=== PATIENT | female | born 1960 | race Caucasian/White ===

== ENCOUNTER → 2020-08-25 | Outpatient (CLI) | payer MEDICARE, OTHER ==
[2020-08-25 14:57] VITALS: BP 140/88; PULSE 57; RESP 16; TEMP 98.1; BMI 40.3
--- NOTE | 2020-08-25 16:15 | P.BASOAP ---
Subjective Progress Note Date: 08/25/20 Principal diagnosis: Morbid obesity Patient returns today for recheck. Underwent lap band she believes in 2006. We have no prior records to refer to. She is not sure if there is fluid in her band or not. She says she has episodes of dysphagia 1 time per month. No GERD symptoms. Weight was 270 prior to lap band placement she believes. Currently at 265. Lowest weight 216. Patient considering band removal with or without conversion to other procedures. Objective - Vital Signs Vital signs: Vital Signs Temp 98.1 F 08/25/20 14:49 Pulse 57 L 08/25/20 14:49 Resp 16 08/25/20 14:49 BP 140/88 08/25/20 14:49 Pulse Ox Intake & Output 08/24/20 08/25/20 08/25/20 18:59 06:59 18:59 Weight 120.202 kg - Exam Abdomen: Soft, nontender, nondistended Assessment/Plan (1) Morbid obesity Narrative/Plan: Options reviewed with the patient. We decided to attempt access of the port to see how much fluid was present and we were debating adding a small volume of fluid. When the port was accessed sterilely using our Rene needle there was no fluid present. As I injected saline and there was no resistance met and no fluid could be aspirated. Suspect leaking port/tubing. This was discussed in detail with the patient. Options of observation, further evaluation of leak with subsequent repair, conversion to alternative bariatric procedure, or simply band removal reviewed. Patient will consider these options and notify me of her decision. Her daughter is having sleeve gastrectomy later this year. Plan: Date: 08/25/20 Initial Weight: 122.47 kg Initial BMI: 41.0 Current Weight: 120.202 kg Current BMI: 40.3 Type of Surgery: Total Volume in Band: 0 Previous Volume: 0 Volume Removed: Volume Added: 0 Band Size:
== END | disposition home or self-care (01) ==
LOC: BARWHC3 13:24
PROVIDERS: ATTEND Surgery
DX: E66.01 Morbid (severe) obesity due to excess calories (principal); Z68.41 Body mass index [BMI] 40.0-44.9, adult
CPT/HCPCS: 99212

== ENCOUNTER → 2021-04-28 | Outpatient (CLI) | payer MEDICARE, OTHER ==
[2021-04-28 16:56] VITALS: BP 138/86; PULSE 69; RESP 18; TEMP 98.1; BMI 39.8
--- NOTE | 2021-04-28 17:32 | P.HPBAR ---
Bariatric H&P - History & Physicial H&P Date: 04/28/21 History & Physicial: Visit/CC: initial visit Patient initial contact: Initial weight: 122.47 kg Initial weight in pounds: 270.00 Height: 5 ft 7.25 in Initial BMI: 42.0 Last weight: Current weight: 116.301 kg Current weight in pounds: 256.40 Current BMI: 39.8 [place] body weight (based on NIH guidelines): 61.802 kg Excess body weight loss: 10.1% The patient is a 60 year-old F who presents for Bariatric Assessment. DATE OF SERVICE: 04/28/2021 REASON FOR CONSULTATION: Initial bariatric evaluation. HISTORY OF PRESENT ILLNESS: Raul Lux is a 60-year-old female who comes with lifelong morbid obesity. She has the adjustable gastric band placed in 2005 over 15 years ago. She had no problems with the band. Her highest weight was 270 pounds. Lowest weight was 200 pounds. She reports food getting stuck with her band and with intractable nausea and vomiting. She reports pain along her gastric port. She wants her band out. Prior to her band, she denies gastroesophageal reflux disease. She still has her gallbladder. Her daughter had her gallbladder out. Her daughter had the sleeve. She had a stress test in 2019. As a result of her morbid obesity, she has co-morbidities osteoarthritis of the back, left knee, and hypertensive heart disease. She presents to me first time in consultation for management of her morbid obesity. At height of 5 feet 7.25 inches, her ideal body weight is 153 pounds. Her highest weight was 270 pounds, body mass index 42.1. Lowest weight was 200 pounds. She comes in 256 pounds. Her body mass index is 39.9. She is 98 pounds overweight. Lifetime weight loss PAST MEDICAL HISTORY: 1. Morbid obesity due to excess calories 2. Body mass index of 38.0, initial 3. ADD with ADHD 4. Generalized anxiety disorder 5. Depressive disorder 6. Bipolar disorder 7. Osteoarthritis lower back 8. Osteoarthritis left knee 9. Gastroesophageal reflux disease 10. Hypertensive heart disease PAST SURGICAL HISTORY: 1. Lap band placement, 2005 2. Back surgery x 2 3. Left knee replacement 4. Tubal ligation HOME MEDICATIONS: Home Medications Medication Instructions Recorded Confirmed Dextroamphetamine/Amphetamine 20 mg PO BID 08/25/20 06/09/21 [Adderall] Metoprolol Succinate (ER) [Toprol 50 mg PO BID 08/25/20 06/09/21 XL] Celecoxib [CeleBREX] 200 mg PO DAILY 05/27/21 06/09/21 lamoTRIgine [LaMICtal] 150 mg PO BID 05/27/21 06/09/21 DULoxetine HCL [Cymbalta] 20 mg PO DAILY 06/09/21 06/09/21 ALLERGIES: Allergies Allergy/AdvReac Type Severity Reaction Status Date / Time latex Allergy Rash/Hives Verified 06/09/21 16:03 wool Allergy Rash/Hives Verified 06/09/21 16:03 SOCIAL HISTORY: Denies tobacco use. Smokes marijuana. FAMILY HISTORY: No family history of ulcerative colitis disease or Crohn's disease. Family history of morbid obesity. No lupus in the family. No reports of stomach or esophageal cancer. REVIEW OF ORGAN SYSTEMS: CONSTITUTIONAL: At height of 5 feet 7.25 inches, her ideal body weight is 153 pounds. Her highest weight was 270 pounds, body mass index 42.1. Lowest weight was 200 pounds. She comes in 256 pounds. Her body mass index is 39.9. She is 98 pounds overweight. Lifetime weight loss HEENT: Denies any active troubles with vision or hearing. Has troubles with swallowing. ENDOCRINE: Denies diabetes. No hypothyroidism. CARDIOVASCULAR: Denies reports of palpitations or heart attacks or chest pain. Has hypertensive heart disease. RESPIRATORY: Denies pneumonia. No recent dyspnea. GASTROINTESTINAL: Denies any bright red blood per rectum. No diarrhea. No constipation. GENITOURINARY: Denies bladder urgency. No recent blood in urine MUSCULOSKELETAL: Has lower back pain and joint pain. Has osteoarthritis of the knees. NEURO: No headaches. No seizure disorders. PSYCH: Has depression. No suicidal ideation. Has anxiety and bipolar disorder with ADD/ADHD. RHEUMATOLOGIC: No lupus. No rheumatoid arthritis. HEMATOLOGIC: Denies any abnormal bleeding or bruising. SKIN: No rash. No skin cancer. PHYSICAL EXAM: VITAL SIGNS: Height 5 foot 7.25 inches, weight 256 pounds. BMI 39.9 Vital Signs Temp 98.1 F 04/28/21 16:43 Pulse 69 04/28/21 16:43 Resp 18 04/28/21 16:43 BP 138/86 04/28/21 16:43 Pulse Ox GENERAL: Well-developed in no acute distress. HEENT: No scleral icterus. Extraocular movements grossly intact. Hears conversational speech. No nasal drainage. NECK: Supple without lymphadenopathy. CHEST: Nonlabored respirations with equal bilateral excursions. CARDIOVASCULAR: Regular rate and regular rhythm. Distal 2+ pulses. ABDOMEN: Obese, soft, nontender, nondistended. MUSCULOSKELETAL: No clubbing, cyanosis. NEURO: No focal or lateralizing signs. Cranial nerves 2 through 12 grossly within normal limits. PSYCH: Appropriate affect. Alert and oriented to person, place and time. SKIN: Good skin turgor. Well perfused. ASSESSMENT: 1. Morbid obesity due to excess calories 2. Body mass index of 38.0, initial 3. ADD with ADHD 4. Generalized anxiety disorder 5. Depressive disorder 6. Bipolar disorder 7. Osteoarthritis lower back 8. Osteoarthritis left knee 9. Gastroesophageal reflux disease 10. Hypertensive heart disease 11. Weight regain following bariatric procedure 12. Dysphagia. 13. Complications adjustable gastric band. PLAN: 1. Recommend evaluation for adjustable band removal due to complications. 2. Recommend bariatric metabolic panel to evaluate for micro- including macronutrient deficiencies. 3. Dietary surveillance and counseling was reviewed. Increased protein intake over 65 grams daily advised. 4. Recommend medical risk assessment. 5. Recommend upper endoscopy for dysphagia 6. Recommend 12-lead EKG. Thank you for this consultation. Past Medical History Past Medical History: GERD/Reflux, Hypertension Additional Past Medical History / Comment(s): arthritis. History of Any Multi-Drug Resistant Organisms: None Reported Past Surgical History: Bariatric Surgery, Orthopedic Surgery, Tubal Ligation Additional Past Surgical History / Comment(s): back surgery X 2. knee replacement left. lap band 2006. Past Anesthesia/Blood Transfusion Reactions: Postoperative Nausea & Vomiting (PONV) Past Psychological History: ADD/ADHD, Anxiety, Bipolar, Depression Smoking Status: Never smoker Past Alcohol Use History: Occasional Past Drug Use History: Marijuana Additional Drug Use History / Comment(s): smoke marijuana - couple times a week. Surgical - Exam Vital Signs Temp Pulse Resp BP 98.1 F 69 18 138/86 04/28/21 16:43 04/28/21 16:43 04/28/21 16:43 04/28/21 16:43 Bariatric Checklist Checklist: Plan: Checklist: EGD: 1. Hiatal hernia: 2. H. Pylori: HgbA1c: Vitamin D: Smoking: Primary care physician referral: Dr. Russell ([place]) Psychiatry clearance: Cardiology clearance: Sleep study: Diet journal: VTE risk score: VTE risk level: Rehab needs at discharge:
== END ==
LOC: BARWHC3 15:43
PROVIDERS: ATTEND Surgery Plastic and Reconstructive Surgery
DX: E66.01 Morbid (severe) obesity due to excess calories (principal); F90.9 Attention-deficit hyperactivity disorder, unspecified type; F41.1 Generalized anxiety disorder; F31.9 Bipolar disorder, unspecified; M47.9 Spondylosis, unspecified; M17.12 Unilateral primary osteoarthritis, left knee; K21.9 Gastro-esophageal reflux disease without esophagitis; I11.9 Hypertensive heart disease without heart failure; K95.09 Other complications of gastric band procedure; Z68.39 Body mass index [BMI] 39.0-39.9, adult; Z91.040 Latex allergy status; Z91.048 Other nonmedicinal substance allergy status
CPT/HCPCS: 99203

== ENCOUNTER → 2021-05-20 | Outpatient (CLI) | payer MEDICARE, OTHER ==
[2021-05-20 12:15] LABS: HCT 38.2 % (34.0-46.0); MCH 30.1 pg (25.0-35.0); MCHC 33.9 g/dL (31.0-37.0); MCV 88.5 fL (80.0-100.0); Mean Platelet Volume 6.7; Platelet Count 244 k/uL (150-450); RBC 4.32 m/uL (3.80-5.40); RDW 13.8 % (11.5-15.5); WBC 6.4 k/uL (3.8-10.6)
[2021-05-20 12:28] LABS: ALT 17 U/L (4-34); AST 24 U/L (14-36); African American GFR (CKD) >90 (>60 ml/min/1.73 sqM); Albumin 4.4 g/dL (3.5-5.0); Alkaline Phosphatase 80 U/L (38-126); Anion Gap 7 mmol/L; Blood Urea Nitrogen 17 mg/dL (7-17); Calcium 9.6 mg/dL (8.4-10.2); Carbon Dioxide 27 mmol/L (22-30); Chloride 106 mmol/L (98-107); Glucose 95 mg/dL (74-99); Non-African American GFR(CKD) >90 (>60 ml/min/1.73 sqM); Phosphorus 3.7 mg/dL (2.5-4.5); Potassium 4.3 mmol/L (3.5-5.1); Sodium 140 mmol/L (137-145); Total Bilirubin 0.4 mg/dL (0.2-1.3); Total Protein 7.1 g/dL (6.3-8.2)
[2021-05-20 12:33] LABS: INR 0.9 (<1.2); Partial Thromboplastin Time 23.4 sec (22.0-30.0); Prothrombin Time 10.2 sec (9.0-12.0)
[2021-05-20 20:38] LABS: Hemoglobin A1C 5.3 % (4.0-6.0)
[2021-05-20 21:24] LABS: % Iron Saturation 13.79 (12.00-45.00); Chol/HDL Ratio 5.65; Cholesterol 226 mg/dL (0-200); Iron 44 ug/dL (50-170); LDL Cholesterol,Calculated 149.4 mg/dL (0.0-131.0); Total Iron Binding Capacity 319 ug/dL (228-460)
[2021-05-20 21:33] LABS: Ferritin 82.3 ng/mL (10.0-291.0)
[2021-05-20 21:58] LABS: Folate, Serum 20.4 ng/mL
[2021-05-21 14:07] LABS: Zinc, Serum 80 ug/dL (60-130)
== END | disposition home or self-care (01) ==
LOC: LABPAT 11:07
PROVIDERS: ATTEND Surgery Plastic and Reconstructive Surgery
DX: N19 Unspecified kidney failure (principal); E66.01 Morbid (severe) obesity due to excess calories; E89.1 Postprocedural hypoinsulinemia; E55.9 Vitamin D deficiency, unspecified; D50.8 Other iron deficiency anemias; K90.89 Other intestinal malabsorption; K74.1 Hepatic sclerosis; K50.90 Crohn's disease, unspecified, without complications
CPT/HCPCS: 36415; 80053; 80061; 82306; 82525; 82607; 82728; 82746; 83036; 83540; 83550; 83735; 83970; 84100; 84134; 84255; 84425; 84443; 84590; 84630; 85027; 85610; 85730; 93005

== ENCOUNTER 2021-05-31 08:29 | Day surgery (SDC) | payer MEDICARE, OTHER ==
[2021-05-27 14:54] VITALS: BMI 40.7
--- NOTE | 2021-05-31 07:39 | P.GSHP ---
History of Present Illness H&P Date: 05/31/21 CHIEF COMPLAINT: GERD HISTORY OF PRESENT ILLNESS: The patient is a 60-year-old female who presents reports gastroesophageal reflux disease. Upper endoscopy was offered for further evaluation and management. PAST MEDICAL HISTORY: Please see list. PAST SURGICAL HISTORY: Please see list. MEDICATIONS: Please see list. ALLERGIES: Please see list. SOCIAL HISTORY: No illicit drug use FAMILY HISTORY: No reports of Crohn disease or ulcerative colitis. REVIEW OF ORGAN SYSTEMS: CONSTITUTIONAL: No reports of fevers or chills. GI: Denies any blood in stools or constipation. PHYSICAL EXAM: VITAL SIGNS: Stable GENERAL: Well-developed and pleasant in no acute distress. HEENT: No scleral icterus. Extraocular movements grossly intact. Moist buccal mucosa. NECK: Supple without lymphadenopathy. CHEST: Unlabored respirations. Equal bilateral excursions. CARDIOVASCULAR: Regular rate and rhythm. Distal 2+ pulses. ABDOMEN: Soft, nondistended. MUSCULOSKELETAL: No clubbing, cyanosis, or edema. ASSESSMENT: 1. Gastroesophageal reflux disease PLAN: 1. Recommend proceeding with an upper endoscopy Past Medical History Past Medical History: Cancer, Hyperlipidemia, Hypertension, Rheumatoid Arthritis (RA) Additional Past Medical History / Comment(s): skin cancer History of Any Multi-Drug Resistant Organisms: None Reported Past Surgical History: Back Surgery, Bariatric Surgery, Joint Replacement, Tubal Ligation Additional Past Surgical History / Comment(s): back surgery X 2. left knee replacement. lap band 2005. Past Anesthesia/Blood Transfusion Reactions: Postoperative Nausea & Vomiting (PONV) Smoking Status: Never smoker - Past Family History Mother Family Medical History: Deep Vein Thrombosis (DVT) Father Family Medical History: Deep Vein Thrombosis (DVT) Medications and Allergies Home Medications Medication Instructions Recorded Confirmed Type Dextroamphetamine/Amphetamine 20 mg PO BID 08/25/20 05/27/21 History [Adderall] Metoprolol Succinate (ER) [Toprol 50 mg PO BID 08/25/20 05/27/21 History Xl] Celecoxib [CeleBREX] 200 mg PO DAILY 05/27/21 05/27/21 History lamoTRIgine [LaMICtal] 150 mg PO BID 05/27/21 05/27/21 History Allergies Allergy/AdvReac Type Severity Reaction Status Date / Time latex Allergy Rash/Hives Verified 05/27/21 14:41 wool Allergy Rash/Hives Verified 05/27/21 14:41
[~2021-05-31 08:29] MED LIST: LACTATED RINGERS 1,000 ML IV SCH
[2021-05-31 08:59] VITALS: TEMP 97.1
[2021-05-31] MEDS ORDERED: ONDANSETRON 4 MG/2 ML VIAL ONE (09:00)
[2021-05-31] MEDS ORDERED: ONDANSETRON 4 MG/2 ML VIAL IVP ONE (09:00)
[2021-05-31] MEDS ORDERED: LIDOCAINE 1% INJ 10MG/ML (20 ML MDV) ONE (09:10)
[2021-05-31] MEDS ORDERED: GLYCOPYRROLATE 0.2 MG/ML 2 ML VIAL ONE (09:10)
[2021-05-31] MEDS ORDERED: PROPOFOL 10 MG/ML 20 ML VIAL IV ONE (09:10)
--- NOTE | 2021-05-31 09:35 | P.PCN ---
Date of Procedure: 05/31/21 Description of Procedure: PREOPERATIVE DIAGNOSIS: Gastroesophageal reflux disease. Morbid obesity. POSTOPERATIVE DIAGNOSIS: Morbid obesity. Gastritis. Gastroesophageal reflux disease. Diaphragmatic hiatal hernia OPERATION: Esophagogastroduodenoscopy with biopsies along antrum. SURGEON: Sophia Ugarte MD ANESTHESIA: MAC. INDICATIONS: The patient is a 60-year-old female who presents with a history of reflux disease. Benefits and risks of the procedure were described. Informed consent was obtained. DESCRIPTION: The patient was brought into the endoscopy suite and laid in the left lateral decubitus position. An Olympus gastroscope was passed along the posterior oropharynx down to the distal esophagus where the squamocolumnar junction was encountered at 38 cm from the incisors. The stomach was entered and no bile reflux was found. Additional findings are listed below. Biopsies with cold f orceps were obtained of the antrum. The first through third portion of the duodenum was examined and unremarkable. Retroflexion of the scope confirmed Hill grade 2 lower esophageal valve. The squamocolumnar junction demonstrated LA grade B erosive esophagitis. The stomach was desufflated. The patient tolerated the procedure well. FINDINGS: Squamocolumnar junction 38 cm from the incisors. Diaphragmatic hiatus at 40 cm. Hiatal hernia, 2 cm Hill grade 2 lower esophageal valve. LA grade B erosive esophagitis. No active duodenitis. Chronic gastritis with recent bleed No erosion from previous gastric band RECOMMENDATIONS: Upper endoscopy as needed. Plan - Discharge Summary New Discharge Prescriptions: Continue Metoprolol Succinate (ER) [Toprol XL] 50 mg PO BID Dextroamphetamine/Amphetamine [Adderall] 20 mg PO BID lamoTRIgine [LaMICtal] 150 mg PO BID Celecoxib [CeleBREX] 200 mg PO DAILY Discharge Medication List Dextroamphetamine/Amphetamine [Adderall] 20 mg PO BID 08/25/20 [History] Metoprolol Succinate (ER) [Toprol XL] 50 mg PO BID 08/25/20 [History] Celecoxib [CeleBREX] 200 mg PO DAILY 05/27/21 [History] lamoTRIgine [LaMICtal] 150 mg PO BID 05/27/21 [History] [facility]ment[facility] [place] [facility] [place] [facility] Patient Instructions/Handouts: *Surgery [facility] - (Anesthesia) Endoscopy Discharge Instructions, Gastritis (GEN), Diet for Stomach Ulcers and Gastritis (ED) Discharge Disposition: HOME SELF-CARE
[2021-05-31 09:40] VITALS: BP 132/84; PULSE 70; RESP 14
== END 2021-05-31 10:10 | disposition home or self-care (01) ==
LOC: ORWHC2ENDO 08:29
PROVIDERS: ATTEND Surgery Plastic and Reconstructive Surgery
DX: K29.50 Unspecified chronic gastritis without bleeding (principal); K21.9 Gastro-esophageal reflux disease without esophagitis; K44.9 Diaphragmatic hernia without obstruction or gangrene; E78.5 Hyperlipidemia, unspecified; I10 Essential (primary) hypertension; M06.9 Rheumatoid arthritis, unspecified; M19.90 Unspecified osteoarthritis, unspecified site; F41.9 Anxiety disorder, unspecified; F31.9 Bipolar disorder, unspecified; E66.01 Morbid (severe) obesity due to excess calories; Z68.41 Body mass index [BMI] 40.0-44.9, adult; Z98.84 Bariatric surgery status; Z96.652 Presence of left artificial knee joint; Z98.51 Tubal ligation status; Z82.49 Family history of ischemic heart disease and other diseases of the circulatory system; Z79.899 Other long term (current) drug therapy; Z91.040 Latex allergy status; Z91.09 Other allergy status, other than to drugs and biological substances
CPT/HCPCS: 88305; 43239; J2405; J2001; J2704

== ENCOUNTER → 2021-07-17 | Outpatient (CLI) | payer MEDICARE, OTHER ==
--- NOTE | 2021-07-19 07:54 | US ---
EXAMINATION TYPE: US gallbladder DATE OF EXAM: 07/17/2021 COMPARISON: NONE CLINICAL HISTORY: R10.11 Abdominal pain right upper quadrant. EXAM MEASUREMENTS: Liver Length: 14.1 cm Gallbladder Wall: 0.3 cm CBD: 0.5 cm Right Kidney: 12.2 x 6.3 x 5.1 cm Pancreas: visualized portions wnl Liver: bilobed cyst measures 1.8 x 1.8 x 2.1 cm Gallbladder: No stones seen Evidence for sonographic Odonnell's sign: Yes CBD: wnl Right Kidney: No hydronephrosis or masses seen IMPRESSION: Bilobed hepatic cyst.
== END | disposition home or self-care (01) ==
LOC: RADUSWWP 08:57
PROVIDERS: ATTEND Surgery Plastic and Reconstructive Surgery
DX: K76.89 Other specified diseases of liver (principal)
CPT/HCPCS: 76705

== ENCOUNTER → 2021-08-30 | Outpatient (CLI) | payer MEDICARE, OTHER ==
[2021-08-30 11:18] VITALS: BMI 42.0
== END ==
LOC: BARWHC3 08:35
PROVIDERS: ATTEND Surgery Plastic and Reconstructive Surgery
DX: E66.01 Morbid (severe) obesity due to excess calories (principal); Z71.3 Dietary counseling and surveillance; Z91.040 Latex allergy status; Z91.09 Other allergy status, other than to drugs and biological substances; Z68.41 Body mass index [BMI] 40.0-44.9, adult
CPT/HCPCS: 97804

== ENCOUNTER 2021-09-13 08:09 | Day surgery (SDC) | payer MEDICARE, OTHER ==
[2021-09-09 14:07] VITALS: BMI 42.0
--- NOTE | 2021-09-13 07:45 | P.GSHP ---
History of Present Illness H&P Date: 09/13/21 CHIEF COMPLAINT: Complications from adjustable gastric band HISTORY OF PRESENT ILLNESS: Raul Lux is a 60-year-old female who comes with lifelong morbid obesity. She has the adjustable gastric band placed in 2005 over 15 years ago. She had no problems with the band. Her highest weight was 270 pounds. Lowest weight was 200 pounds. She reports food getting stuck with her band and with intractable nausea and vomiting. She reports pain along her gastric port. As a result of her morbid obesity, she has co-morbidities osteoarthritis of the back, left knee, and hypertensive heart disease. She presents with complications of adjustable gastric band At height of 5 feet 7.25 inches, her ideal body weight is 153 pounds. Her highest weight was 270 pounds, body mass index 42.1. Lowest weight was 200 pounds. She comes in 256 pounds. Her body mass index is 39.9. She is 98 pounds overweight. Lifetime weight loss PAST MEDICAL HISTORY: 1. Morbid obesity due to excess calories 2. Body mass index of 38.0, initial 3. ADD with ADHD 4. Generalized anxiety disorder 5. Depressive disorder 6. Bipolar disorder 7. Osteoarthritis lower back 8. Osteoarthritis left knee 9. Gastroesophageal reflux disease 10. Hypertensive heart disease PAST SURGICAL HISTORY: 1. Lap band placement, 2005 2. Back surgery x 2 3. Left knee replacement 4. Tubal ligation HOME MEDICATIONS: Home Medications Medication Instructions Recorded Confirmed Dextroamphetamine/Amphetamine 20 mg PO BID 08/25/20 06/09/21 [Adderall] Metoprolol Succinate (ER) [Toprol 50 mg PO BID 08/25/20 06/09/21 XL] Celecoxib [CeleBREX] 200 mg PO DAILY 05/27/21 06/09/21 lamoTRIgine [LaMICtal] 150 mg PO BID 05/27/21 06/09/21 DULoxetine HCL [Cymbalta] 20 mg PO DAILY 06/09/21 06/09/21 ALLERGIES: Allergies Allergy/AdvReac Type Severity Reaction Status Date / Time latex Allergy Rash/Hives Verified 06/09/21 16:03 wool Allergy Rash/Hives Verified 06/09/21 16:03 SOCIAL HISTORY: Denies tobacco use. Smokes marijuana. FAMILY HISTORY: No family history of ulcerative colitis disease or Crohn's disease. Family history of morbid obesity. No lupus in the family. No reports of stomach or esophageal cancer. REVIEW OF ORGAN SYSTEMS: CONSTITUTIONAL: At height of 5 feet 7.25 inches, her ideal body weight is 153 pounds. Her highest weight was 270 pounds, body mass index 42.1. Lowest weight was 200 pounds. She comes in 256 pounds. Her body mass index is 39.9. She is 98 pounds overweight. Lifetime weight loss HEENT: Denies any active troubles with vision or hearing. Has troubles with swallowing. ENDOCRINE: Denies diabetes. No hypothyroidism. CARDIOVASCULAR: Denies reports of palpitations or heart attacks or chest pain. Has hypertensive heart disease. RESPIRATORY: Denies pneumonia. No recent dyspnea. GASTROINTESTINAL: Denies any bright red blood per rectum. No diarrhea. No constipation. GENITOURINARY: Denies bladder urgency. No recent blood in urine MUSCULOSKELETAL: Has lower back pain and joint pain. Has osteoarthritis of the knees. NEURO: No headaches. No seizure disorders. PSYCH: Has depression. No suicidal ideation. Has anxiety and bipolar disorder with ADD/ADHD. RHEUMATOLOGIC: No lupus. No rheumatoid arthritis. HEMATOLOGIC: Denies any abnormal bleeding or bruising. SKIN: No rash. No skin cancer. PHYSICAL EXAM: VITAL SIGNS: Height 5 foot 7.25 inches, weight 256 pounds. BMI 39.9 GENERAL: Well-developed in no acute distress. HEENT: No scleral icterus. Extraocular movements grossly intact. Hears conversational speech. No nasal drainage. NECK: Supple without lymphadenopathy. CHEST: Nonlabored respirations with equal bilateral excursions. CARDIOVASCULAR: Regular rate and regular rhythm. Distal 2+ pulses. ABDOMEN: Obese, soft, nontender, nondistended. MUSCULOSKELETAL: No clubbing, cyanosis. NEURO: No focal or lateralizing signs. Cranial nerves 2 through 12 grossly within normal limits. PSYCH: Appropriate affect. Alert and oriented to person, place and time. SKIN: Good skin turgor. Well perfused. ASSESSMENT: 1. Morbid obesity due to excess calories 2. Body mass index of 38.0, initial 3. ADD with ADHD 4. Generalized anxiety disorder 5. Depressive disorder 6. Bipolar disorder 7. Osteoarthritis lower back 8. Osteoarthritis left knee 9. Gastroesophageal reflux disease 10. Hypertensive heart disease 11. Weight regain following bariatric procedure 12. Dysphagia. 13. Complications adjustable gastric band. PLAN: 1. Recommend removal of adjustable gastric band due to complications Past Medical History Past Medical History: Cancer, GERD/Reflux, Hypertension Additional Past Medical History / Comment(s): arthritis,cancerous mole removed History of Any Multi-Drug Resistant Organisms: None Reported Past Surgical History: Bariatric Surgery, Orthopedic Surgery, Tubal Ligation Additional Past Surgical History / Comment(s): back surgery X 2. knee replacement left. lap band 2005. Past Anesthesia/Blood Transfusion Reactions: Postoperative Nausea & Vomiting (PONV) Smoking Status: Never smoker - Past Family History Mother Family Medical History: No Reported History Medications and Allergies Home Medications Medication Instructions Recorded Confirmed Type Dextroamphetamine/Amphetamine 20 mg PO BID 08/25/20 09/09/21 History [Adderall] Metoprolol Succinate (ER) [Toprol 50 mg PO BID 08/25/20 09/09/21 History XL] Celecoxib [CeleBREX] 200 mg PO DAILY 05/27/21 09/09/21 History lamoTRIgine [LaMICtal] 150 mg PO BID 05/27/21 09/09/21 History DULoxetine HCL [Cymbalta] 20 mg PO QAM 06/09/21 09/09/21 History Allergies Allergy/AdvReac Type Severity Reaction Status Date / Time latex Allergy skin Verified 09/09/21 14:00 redness wool Allergy Rash/Hives Verified 09/09/21 14:00
[~2021-09-13 08:09] MED LIST changes: +ACETAMINOPHEN TAB 500 MG TAB PO STA; +CHLORHEXIDINE GLUCONATE 15 ML CUP MUCOUS MEM PRN; +DEXAMETHASONE SOD PHOSPHATE 4 MG/ML 1 ML VIAL IV ONE; +ENOXAPARIN 40 MG/0.4 ML SYRINGE SQ PRN; +GABAPENTIN 300 MG CAP PO STA; -LACTATED RINGERS 1,000 ML IV SCH; +MIDAZOLAM 2 MG/2 ML VIAL IV PRN; +ONDANSETRON 4 MG/2 ML VIAL IVP ONE; +PANTOPRAZOLE 40 MG/10 ML VIAL IVP PRN; +SCOPOLAMINE 1.5MG/72HR PATCH TRANSDERM ONE
[2021-09-13] MEDS: LACTATED RINGERS 1,000 ML IV SCH ×2 (08:42→09:04)
[2021-09-13] MEDS ORDERED: MELOXICAM 7.5 MG TAB PO SCH (09:00)
[2021-09-13] MEDS ORDERED: NEOSTIGMINE 1 MG/ML 10 ML VIAL ONE (09:01)
[2021-09-13] MEDS ORDERED: SUCCINYLCHOLINE CHLORIDE 100 MG/5 ML SYR IV ONE (09:01)
[2021-09-13] MEDS ORDERED: GLYCOPYRROLATE 0.2 MG/ML 2 ML VIAL ONE (09:01)
[2021-09-13] MEDS ORDERED: ROCURONIUM 10 MG/ML (5 ML VIAL) IV ONE (09:01)
[2021-09-13] MEDS ORDERED: PROPOFOL 10 MG/ML 20 ML VIAL IV ONE (09:01)
[2021-09-13] MEDS ORDERED: fentaNYL (PF) 50 MCG/ML 2 ML AMP ONE (09:01)
[2021-09-13] MEDS ORDERED: MIDAZOLAM 2 MG/2 ML VIAL ONE (09:01)
[2021-09-13] MEDS ORDERED: LIDOCAINE 1% INJ 10MG/ML (20 ML MDV) ONE (09:01)
[2021-09-13] MEDS: ceFAZolin 3 GM in SODIUM CHLORIDE 0.9% 100 ML IVPB PRN ×2 (09:06→09:10)
[2021-09-13] MEDS ORDERED: LIDOCAINE 1%-EPI 1:100,000 20 ML VIAL SQ ONE (09:32)
[2021-09-13 10:27] VITALS: TEMP 97.4
--- NOTE | 2021-09-13 10:31 | P.OP ---
Date of Procedure: 09/13/21 Description of Procedure: SURGEON: MARTY CRAMER MD PREOPERATIVE DIAGNOSES: 1. Morbid obesity due to excess calories 2. Body mass index of 42.0 3. ADD with ADHD 4. Generalized anxiety disorder 5. Depressive disorder 6. Bipolar disorder 7. Osteoarthritis lower back 8. Osteoarthritis left knee 9. Gastroesophageal reflux disease 10. Hypertensive heart disease 11. Weight regain following bariatric procedure 12. Dysphagia. 13. Complications adjustable gastric band. POSTOPERATIVE DIAGNOSES: 1. Morbid obesity due to excess calories 2. Body mass index of 42.0 3. ADD with ADHD 4. Generalized anxiety disorder 5. Depressive disorder 6. Bipolar disorder 7. Osteoarthritis lower back 8. Osteoarthritis left knee 9. Gastroesophageal reflux disease 10. Hypertensive heart disease 11. Weight regain following bariatric procedure 12. Dysphagia. 13. Complications adjustable gastric band. 14. Malfunction of adjustable gastric band tubing. OPERATION: 1. Robotic-assisted da Willem Xi laparoscopic removal of adjustable gastric band and all components. 2. Intraoperative upper endoscopy. ANESTHESIA: General with local anesthetic. ESTIMATED BLOOD LOSS: 5 mL SPECIMENS REMOVED: 1. Adjustable gastric band and components Condition: stable Disposition: same day COMPLICATIONS: None. Operative Findings: 1. Adjustable gastric band port found along the epigastrium removed in total 2. Old generation gastric band, with minimal inflammatory reaction 3. Anti-prolapse suture divided. 4 Gastroesophageal reflux disease, LA grade B found. 5. Fracture to the tubing along the fascia was confirmed for malfunction adjustable gastric band/tubing. INDICATIONS: The patient is a 60-year-old male who presents with complications of her adjustable gastric band. Surgical options were described including removal of the band. As she has persistent pain and discomfort from the band, removal of the adjustable gastric band and port including all components was proposed. Benefits and risks of the procedure were described. Informed consent was obtained. DESCRIPTION: The patient was brought into the operating room theater. She was placed supine. She had received Lovenox subcutaneously for DVT prophylaxis. Additionally she Peridex oral solution as an oral decontaminant was placed per anesthesia. After general induction, the abdomen was prepped and draped in standard sterile fashion. Ioban draping was placed along the abdomen. A robotic da Willem Xi system was prepped and primed. Prior to incision, a timeout protocol was performed and confirmed with the surgical team. Attention was now brought to the intra-abdominal component of the procedure the removal of the adjustable gastric band. Incisions were proposed at 13 cm from the xiphoid. Proposed port sites were marked with indelible marker along the anterior axillary line bilaterally, mid clavicular line bilaterally with each port marked 10 cm from each other. A 5 mm 0 degrees laparoscopic trocar entry was performed along the left upper quadrant. The abdomen was insufflated to 15 mmHg pressure, which she tolerated well. Diagnostic laparoscopy demonstrated no injury to bowel, viscera, or mesentery or moderate adhesions in the abdomen. An 8 mm camera port was placed left lateral to the umbilicus at the epigastrium, 13 cm distal to the xiphoid. Next, 8-mm port was placed along the right mid abdomen. The 5 mm port was exchanged for 12 mm trocar. Another 8-mm port was placed along the right upper quadrant. The port was palpated along the epigastrium. A transverse 3 cm incision was placed over the adjustable gastric band port site using #11 blade. The incision was deepened to the subcutaneous tissue using electrocautery Bovie cautery. The port was identified and circumferentially dissected free from the surrounding tissues. Once freed, the port was removed from the pocket and placed onto the skin and tubing was cut. Fracture to the tubing along the fascia was confirmed for malfunction adjustable gastric band/tubing. The robot was docked along the left lateral abdomen. The patient was repositioned in reverse Trendelenburg position, 21-degrees. A 30-degree camera was used. Using a Prograsp for arm 1, including scissors with cautery for arm 3, and grasper for arm 4, the robotic system was docked and primed as described. Instruments were interchanged by the executive personal assistant. I had sat at the console. The port was followed with its tubing to the gastric band. The gastrohepatic ligament was scarred from prior surgery. The cicatrix around the adjustable gastric band was carefully dissected free. The anti-prolapse stitch was divided. The band was then freed using hook cautery. Allergan adjustable gastric band was removed in total. Care was taken to avoid any gastrotomies. I then went to the head of the bed to perform intraoperative esophagogastroduodenoscopy to evaluate for gastritis and any full thickness injury to the stomach. An Olympus gastroscope was passed from the posterior oropharynx down to the esophagus, where the squamocolumnar junction was found LA grade B erosive esophagitis, chronic changes. The stomach was entered and bile was found and suctioned. Mild chronic gastritis was found along the antrum without gastric ulcers or duodenitis or duodenal ulcers. Retroflexion of the scope confirmed a Hill grade 2 lower esophageal valve. No full-thickness erosion from the prior band was encountered. The stomach was desufflated. The patient tolerated the procedure well. No evidence of leak was encountered from the removal of the band. The scope was removed with desufflation of the stomach. I re-scrubbed into the case. The adjustable gastric band was removed from the abdominal cavity via 12 mm port site. Diagnostic laparoscopy demonstrated complete removal of all foreign body. All instruments and pneumoperitoneum were evacuated from the abdominal cavity. The port extraction site was hemostatic. The port site was irrigated using normal saline and hydrogen peroxide. The incisions were reapproximated using 4- 0 Monocryl in a subcuticular interrupted fashion. Optifoam dressing was placed over the port extraction site. At the end of the procedure, needle, sponge and instrument counts were verified correct by the technicians and trades workers. The patient had tolerated the procedure well. An abdominal binder was placed. The patient was transferred to Postanesthesia Care Unit in stable condition. Postoperative findings with intraoperative images were discussed with the patient's family who were pleased with the level of care. Plan - Discharge Summary Discharge Rx Participant: No New Discharge Prescriptions: New Simethicone [Gas-X] 125 mg PO AC-TID PRN #20 cap PRN Reason: Pain Ibuprofen [Motrin] 600 mg PO Q8HR PRN #30 tab PRN Reason: Pain Acetaminophen Tab [Tylenol Tab] 1,000 mg PO Q6HR PRN #30 tablet PRN Reason: Pain Continue Metoprolol Succinate (ER) [Toprol XL] 50 mg PO BID Dextroamphetamine/Amphetamine [Adderall] 20 mg PO BID lamoTRIgine [LaMICtal] 150 mg PO BID Celecoxib [CeleBREX] 200 mg PO DAILY Discharge Medication List Dextroamphetamine/Amphetamine [Adderall] 20 mg PO BID 08/25/20 [History] Metoprolol Succinate (ER) [Toprol XL] 50 mg PO BID 08/25/20 [History] Celecoxib [CeleBREX] 200 mg PO DAILY 05/27/21 [History] lamoTRIgine [LaMICtal] 150 mg PO BID 05/27/21 [History] Acetaminophen Tab [Tylenol Tab] 1,000 mg PO Q6HR PRN #30 tablet 09/13/21 [Rx] Ibuprofen [Motrin] 600 mg PO Q8HR PRN #30 tab 09/13/21 [Rx] Simethicone [Gas-X] 125 mg PO AC-TID PRN #20 cap 09/13/21 [Rx] [facility]ment(s[facility]Ref[facility] [facility] [place] [place] [facility] [place] [facility]21 9:00 am Patient Instructions/Handouts: *[facility] - Managing Your Pain After Surgery Without Opioids, Abdominal Binder (DC), Adjustable Gastric Band Removal (DC) Activity/Diet/Wound Care/Special Instructions: Recommend low-fat diet for the next 2 days. Wear abdominal binder for 2 weeks. No lifting over 10 pounds in 2 weeks until Sep 27. May shower. No bath tub soaks for two weeks until Sep 27. Diet as tolerated. Use Tylenol, simethicone and ibuprofen or Aleve scheduled for the next 24-48 hours for best pain relief. Use ice along incisions for today to prevent swelling.
[2021-09-13] MEDS ORDERED: ONDANSETRON 4 MG/2 ML VIAL ONE (10:40)
[2021-09-13] MEDS ORDERED: ONDANSETRON 4 MG/2 ML VIAL IVP ONE (10:42)
[2021-09-13] MEDS: HYDROmorphone 0.5 MG/0.5 ML SYRINGE IVP PRN ×3 (10:42→11:04)
[2021-09-13 11:51] VITALS: RESP 20
[2021-09-13 12:25] VITALS: BP 133/72; PULSE 61
== END 2021-09-13 12:32 | disposition home or self-care (01) ==
LOC: OR 08:09
PROVIDERS: ATTEND Surgery Plastic and Reconstructive Surgery
DX: K95.09 Other complications of gastric band procedure (principal); I11.9 Hypertensive heart disease without heart failure; E66.01 Morbid (severe) obesity due to excess calories; Z68.38 Body mass index [BMI] 38.0-38.9, adult; F41.1 Generalized anxiety disorder; M17.12 Unilateral primary osteoarthritis, left knee; F31.9 Bipolar disorder, unspecified; F90.9 Attention-deficit hyperactivity disorder, unspecified type; M47.9 Spondylosis, unspecified; K21.9 Gastro-esophageal reflux disease without esophagitis; Z96.652 Presence of left artificial knee joint; Z98.51 Tubal ligation status; Z98.890 Other specified postprocedural states; Z79.899 Other long term (current) drug therapy; Z79.1 Long term (current) use of non-steroidal anti-inflammatories (NSAID); Z91.040 Latex allergy status; Z91.09 Other allergy status, other than to drugs and biological substances
CPT/HCPCS: 43774; J2250; J1100; J2710; J0690; J2405; J2001; J1650; J3010; J0330; J2704; C9113; J1170

== ENCOUNTER → 2021-09-17 | Outpatient (CLI) | payer MEDICARE, OTHER ==
[2021-09-17 09:36] VITALS: BP 162/90; PULSE 76; TEMP 98.1; BMI 41.8
== END ==
LOC: BARWHC3 09:18
PROVIDERS: ATTEND Surgery Plastic and Reconstructive Surgery
DX: Z09 Encounter for follow-up examination after completed treatment for conditions other than malignant neoplasm (principal); Z98.84 Bariatric surgery status; Z91.040 Latex allergy status; Z91.048 Other nonmedicinal substance allergy status
CPT/HCPCS: 99211

== ENCOUNTER → 2021-12-09 | Outpatient (CLI) | payer MEDICARE, OTHER | END | disposition home or self-care (01) | LOC: LABPAT 15:56 | PROVIDERS: ATTEND Surgery Plastic and Reconstructive Surgery | DX: Z01.812 Encounter for preprocedural laboratory examination (principal); Z20.822 Contact with and (suspected) exposure to COVID-19 | CPT/HCPCS: U0003; C9803; U0005; 80053; 85025; 86850; 86900; 86901 ==

== ENCOUNTER 2021-12-13 06:44 | Inpatient (IN) | payer MEDICARE, OTHER ==
[2021-12-07 12:31] VITALS: BMI 40.1
[2021-12-09 17:08] LABS: Basophils # (A) 0.1 k/uL (0-0.2); Basophils % (A) 1 %; Eosinophils # (A) 0.2 k/uL (0-0.7); Eosinophils % (A) 3 %; HCT 40.8 % (34.0-46.0); HGB 13.4 gm/dL (11.4-16.0); Lymphocytes # (A) 1.6 k/uL (1.0-4.8); Lymphocytes % (A) 26 %; MCH 29.8 pg (25.0-35.0); MCHC 32.9 g/dL (31.0-37.0); MCV 90.8 fL (80.0-100.0); Monocytes # (A) 0.3 k/uL (0-1.0); Monocytes % (A) 4 %; Neutrophils # (A) 4.1 k/uL (1.3-7.7); Neutrophils % (A) 64 %; Platelet Count 256 k/uL (150-450); RBC 4.49 m/uL (3.80-5.40); RDW 13.8 % (11.5-15.5); WBC 6.4 k/uL (3.8-10.6)
[2021-12-10 00:01] LABS: Albumin 4.6 g/dL (3.8-4.9); Albumin/Globulin Ratio 2.03 (1.60-3.17); Anion Gap 12.4 mmol/L (10.00-18.00); BUN/Creat Ratio 20.49 Ratio (12.00-20.00); Blood Urea Nitrogen 17.7 mg/dL (9.0-27.0); Calcium 9.6 mg/dL (8.7-10.3); Carbon Dioxide 23.9 mmol/L (20.0-27.5); Globulin 2.3 g/dL (1.6-3.3); Non-African American GFR(CKD) 72.5 (60.0-200.0); Total Bilirubin 0.4 mg/dL (0.30-1.20); Total Protein 6.9 g/dL (6.2-8.2)
[~2021-12-13 06:44] MED LIST changes: -ACETAMINOPHEN TAB 500 MG TAB PO STA; -CHLORHEXIDINE GLUCONATE 15 ML CUP MUCOUS MEM PRN; -ENOXAPARIN 40 MG/0.4 ML SYRINGE SQ PRN; -GABAPENTIN 300 MG CAP PO STA; +LIDOCAINE 1% (10MG/ML) FOR IV START INTRADERMA PRN; -MIDAZOLAM 2 MG/2 ML VIAL IV PRN; -PANTOPRAZOLE 40 MG/10 ML VIAL IVP PRN
[2021-12-13] MEDS ORDERED: CHLORHEXIDINE GLUCONATE 15 ML CUP MUCOUS MEM PRN (07:00)
[2021-12-13] MEDS ORDERED: ENOXAPARIN 40 MG/0.4 ML SYRINGE SQ PRN (07:00)
[2021-12-13] MEDS ORDERED: PANTOPRAZOLE 40 MG/10 ML VIAL IVP PRN (07:00)
[2021-12-13] MEDS: LACTATED RINGERS 1,000 ML IV SCH (07:34)
[2021-12-13] MEDS ORDERED: LIDOCAINE 1% (10MG/ML) FOR IV START INTRADERMA ONE (07:34)
[2021-12-13] MEDS ORDERED: ONDANSETRON 4 MG/2 ML VIAL IVP ONE (07:36)
[2021-12-13] MEDS ORDERED: SCOPOLAMINE 1.5MG/72HR PATCH TRANSDERM ONE (07:36)
[2021-12-13] MEDS ORDERED: DEXAMETHASONE SOD PHOSPHATE 4 MG/ML 1 ML VIAL IVP ONE (07:37)
[2021-12-13] MEDS ORDERED: MIDAZOLAM 2 MG/2 ML VIAL IVP ONE (07:46)
--- NOTE | 2021-12-13 07:49 | P.GSHP ---
History of Present Illness H&P Date: 12/13/21 CHIEF COMPLAINT: Complications from adjustable gastric band HISTORY OF PRESENT ILLNESS: Raul Lux is a 61-year-old female who comes with lifelong morbid obesity. She has the adjustable gastric band placed in 2005 over 15 years ago with subsequent removal August 2021. She presents for sleeve gastrectomy. At height of 5 feet 7.25 inches, her ideal body weight is 153 pounds. Her highest weight was 270 pounds, body mass index 42.1. PAST MEDICAL HISTORY: 1. Morbid obesity due to excess calories 2. Body mass index of 38.0, initial 3. ADD with ADHD 4. Generalized anxiety disorder 5. Depressive disorder 6. Bipolar disorder 7. Osteoarthritis lower back 8. Osteoarthritis left knee 9. Gastroesophageal reflux disease 10. Hypertensive heart disease PAST SURGICAL HISTORY: 1. Lap band placement, 2005 2. Back surgery x 2 3. Left knee replacement 4. Tubal ligation HOME MEDICATIONS: Home Medications Medication Instructions Recorded Confirmed Dextroamphetamine/Amphetamine 20 mg PO BID 08/25/20 06/09/21 [Adderall] Metoprolol Succinate (ER) [Toprol 50 mg PO BID 08/25/20 06/09/21 XL] Celecoxib [CeleBREX] 200 mg PO DAILY 05/27/21 06/09/21 lamoTRIgine [LaMICtal] 150 mg PO BID 05/27/21 06/09/21 DULoxetine HCL [Cymbalta] 20 mg PO DAILY 06/09/21 06/09/21 ALLERGIES: Allergies Allergy/AdvReac Type Severity Reaction Status Date / Time latex Allergy Rash/Hives Verified 06/09/21 16:03 wool Allergy Rash/Hives Verified 06/09/21 16:03 SOCIAL HISTORY: Denies tobacco use. Smokes marijuana. FAMILY HISTORY: No family history of ulcerative colitis disease or Crohn's disease. Family history of morbid obesity. No lupus in the family. No reports of stomach or esophageal cancer. REVIEW OF ORGAN SYSTEMS: CONSTITUTIONAL: At height of 5 feet 7.25 inches, her ideal body weight is 153 pounds. Her highest weight was 270 pounds, body mass index 42.1. Lowest weight was 200 pounds. She comes in 256 pounds. Her body mass index is 39.9. She is 98 pounds overweight. Lifetime weight loss HEENT: Denies any active troubles with vision or hearing. Has troubles with swallowing. ENDOCRINE: Denies diabetes. No hypothyroidism. CARDIOVASCULAR: Denies reports of palpitations or heart attacks or chest pain. Has hypertensive heart disease. RESPIRATORY: Denies pneumonia. No recent dyspnea. GASTROINTESTINAL: Denies any bright red blood per rectum. No diarrhea. No constipation. GENITOURINARY: Denies bladder urgency. No recent blood in urine MUSCULOSKELETAL: Has lower back pain and joint pain. Has osteoarthritis of the knees. NEURO: No headaches. No seizure disorders. PSYCH: Has depression. No suicidal ideation. Has anxiety and bipolar disorder with ADD/ADHD. RHEUMATOLOGIC: No lupus. No rheumatoid arthritis. HEMATOLOGIC: Denies any abnormal bleeding or bruising. SKIN: No rash. No skin cancer. PHYSICAL EXAM: VITAL SIGNS: Height 5 foot 7.25 inches, weight 256 pounds. BMI 39.9 GENERAL: Well-developed in no acute distress. HEENT: No scleral icterus. Extraocular movements grossly intact. Hears conversational speech. No nasal drainage. NECK: Supple without lymphadenopathy. CHEST: Nonlabored respirations with equal bilateral excursions. CARDIOVASCULAR: Regular rate and regular rhythm. Distal 2+ pulses. ABDOMEN: Obese, soft, nontender, nondistended. MUSCULOSKELETAL: No clubbing, cyanosis. NEURO: No focal or lateralizing signs. Cranial nerves 2 through 12 grossly within normal limits. PSYCH: Appropriate affect. Alert and oriented to person, place and time. SKIN: Good skin turgor. Well perfused. ASSESSMENT: 1. Morbid obesity due to excess calories 2. Body mass index of 38.0, initial 3. ADD with ADHD 4. Generalized anxiety disorder 5. Depressive disorder 6. Bipolar disorder 7. Osteoarthritis lower back 8. Osteoarthritis left knee 9. Gastroesophageal reflux disease 10. Hypertensive heart disease 11. Weight regain following bariatric procedure 12. Dysphagia. 13. Complications adjustable gastric band. PLAN: 1. Bariatric options between a sleeve, band and a Asia-en-Y gastric bypass were reviewed in detail. The patient elected for a sleeve gastrectomy. Robotic assi sted approach described. 2. The [place] [facility] Data was also reviewed with benefits and risks as described. 3. An 8 page second-generation bariatric consent form was reviewed in detail including potential of bleeding, infection, leaks, adequate weight loss, nutritional deficiencies which the patient demonstrated understanding of the risks. 4. A 2 week high-protein low caloric 800 kcal diet described to address hepatomegaly. 5. Preoperative labs including complete metabolic panel and CBC with type and screen recommended. 6. DVT prophylaxis per [place] [facility]. 7. Antibiotic prophylaxis. 8. Inpatient hospitalization anticipated for more than 2 nights. 9. All questions and concerns were addressed with the patient. 10. She is at elevated risk for perioperative complications for leaks including stricture secondary to prior adjustable gastric band. Past Medical History Past Medical History: Cancer, GERD/Reflux, Hypertension Additional Past Medical History / Comment(s): arthritis,cancerous mole removed History of Any Multi-Drug Resistant Organisms: None Reported Past Surgical History: Bariatric Surgery, Orthopedic Surgery, Tubal Ligation Additional Past Surgical History / Comment(s): back surgery X 2. knee replacement left. lap band 2005. lap band removal 09-13-21 Past Anesthesia/Blood Transfusion Reactions: Postoperative Nausea & Vomiting (PONV) Smoking Status: Never smoker - Past Family History Mother Family Medical History: No Reported History Medications and Allergies Home Medications Medication Instructions Recorded Confirmed Type Dextroamphetamine/Amphetamine 20 mg PO BID 08/25/20 12/13/21 History [Adderall] Metoprolol Succinate (ER) [Toprol 50 mg PO BID 08/25/20 12/13/21 History XL] Celecoxib [CeleBREX] 200 mg PO DAILY 05/27/21 12/13/21 History lamoTRIgine [LaMICtal] 150 mg PO BID 05/27/21 12/13/21 History Klonopin(Unknown Dose) 1 tab PO DIRECTED PRN 12/07/21 12/13/21 History Allergies Allergy/AdvReac Type Severity Reaction Status Date / Time latex Allergy skin Verified 12/13/21 07:08 redness wool Allergy Rash/Hives Verified 12/13/21 07:08 Surgical - Exam Vital Signs Temp Pulse Resp BP Pulse Ox 97.5 F L 77 16 145/75 96 12/13/21 07:26 12/13/21 07:26 12/13/21 07:26 12/13/21 07:26 12/13/21 07:26 Results - Labs 12/09/21 16:35 12/09/21 16:35
[2021-12-13] MEDS ORDERED: GABAPENTIN 300 MG CAP PO STA (07:50)
[2021-12-13] MEDS ORDERED: ACETAMINOPHEN TAB 500 MG TAB PO STA (07:50)
[2021-12-13] MEDS ORDERED: SCOPOLAMINE 1.5MG/72HR PATCH TRANSDERM STA (07:50)
--- NOTE | 2021-12-13 08:02 | P.HPADDEND ---
H&P Addendum H&P Addendum Date: 12/13/21 All questions addressed with daughter at bedside. Patient has elevated risks due to pre-existing adjustable gastric band removal. Lysis of adhesions also reviewed.
[2021-12-13] MEDS ORDERED: KETOROLAC 15 MG/ML 1 ML VIAL ONE (08:17)
[2021-12-13] MEDS ORDERED: NEOSTIGMINE 1 MG/ML 10 ML VIAL ONE (08:17)
[2021-12-13] MEDS ORDERED: PROPOFOL 10 MG/ML 20 ML VIAL IV ONE (08:17)
[2021-12-13] MEDS ORDERED: KETAMINE 10 MG/ML 20 ML VIAL ONE (08:17)
[2021-12-13] MEDS ORDERED: MIDAZOLAM 2 MG/2 ML VIAL ONE (08:17)
[2021-12-13] MEDS ORDERED: GLYCOPYRROLATE 0.2 MG/ML 2 ML VIAL ONE (08:17)
[2021-12-13] MEDS ORDERED: LIDOCAINE 1% INJ 10MG/ML (20 ML MDV) ONE (08:17)
[2021-12-13] MEDS ORDERED: PHENYLEPHRINE-0.9% NACL SYG 1,000 MCG/10 ML SYRINGE ONE (08:17)
[2021-12-13] MEDS ORDERED: HYDROmorphone (PF) 1 MG/ML ONE (08:17)
[2021-12-13] MEDS ORDERED: fentaNYL (PF) 50 MCG/ML 2 ML AMP ONE (08:17)
[2021-12-13] MEDS ORDERED: ROCURONIUM 10 MG/ML (5 ML VIAL) IV ONE (08:17)
[2021-12-13] MEDS ORDERED: SUCCINYLCHOLINE CHLORIDE 100 MG/5 ML SYR IV ONE (08:17)
[2021-12-13] MEDS ORDERED: LACTATED RINGERS 1,000 ML IV ONE (08:55)
[2021-12-13] MEDS ORDERED: BUPIVACAIN-EPI 0.25%-1:200,000 30 ML VIAL SQ ONE (09:19)
[2021-12-13] MEDS ORDERED: HYDROmorphone 1 MG/ML 1 ML SYRINGE IVP PRN (11:06)
[2021-12-13] MEDS ORDERED: NALOXONE 0.4 MG/ML 1 ML VIAL IV PRN (11:06)
[2021-12-13] MEDS ORDERED: diphenhydrAMINE 50 MG/ML 1 ML VIAL IVP PRN (11:06)
[2021-12-13] MEDS: HYDROmorphone 0.5 MG/0.5 ML SYRINGE IVP PRN ×2 (11:13→12:45)
--- NOTE | 2021-12-13 11:20 | P.OP ---
Date of Procedure: 12/13/21 Description of Procedure: SURGEON: MARTY CRAMER MD PREOPERATIVE DIAGNOSES: 1. Morbid obesity due to excess calories 2. Body mass index of 42.1,initial 3. ADD with ADHD 4. Generalized anxiety disorder 5. Depressive disorder 6. Bipolar disorder 7. Osteoarthritis lower back 8. Osteoarthritis left knee 9. Gastroesophageal reflux disease 10. Hypertensive heart disease 11. Weight regain following bariatric procedure 12. Dysphagia. 13. Complications adjustable gastric band. POSTOPERATIVE DIAGNOSES: 1. Morbid obesity due to excess calories 2. Body mass index of 42.1, initial 3. ADD with ADHD 4. Generalized anxiety disorder 5. Depressive disorder 6. Bipolar disorder 7. Osteoarthritis lower back 8. Osteoarthritis left knee 9. Gastroesophageal reflux disease 10. Hypertensive heart disease 11. Weight regain following bariatric procedure 12. Dysphagia. 13. Complications adjustable gastric band. 14. Perigastric adhesions OPERATION: 1. Robotic assisted daVinci Xi laparoscopic sleeve gastrectomy with 40-Puerto Rican bougie, multiport. 2. Robotic assisted daVinci Xi laparoscopic lysis of adhesions, 30 minute 2. Intraoperative esophagogastroduodenoscopy. ANESTHESIA: Gen. local anesthetic ESTIMATED BLOOD LOSS: 10 mL SPECIMENS REMOVED: Sleeve gastrectomy COMPLICATIONS: None. FINDINGS: 1. Negative intraoperative esophagogastrojejunoscopy leak test. 2. No hepatomegaly and no large hiatus hernia. 3. Total of 7 staplers used including 1 - 60 mm black robot leyla, 3 - 60 mm green robot loads, 3 - 60 mm blue robot loads used to create the gastric sleeve. 4. Sleeve gastrectomy, 34 x 4 cm INDICATIONS: Raul Lux is a 61-year-old female who comes with lifelong morbid obesity. She has the adjustable gastric band placed in 2005 over 15 years ago with subsequent removal August 2021. She presents for sleeve gastrectomy. At height of 5 feet 7.25 inches, her ideal body weight is 153 pounds. Her highest weight was 270 pounds, body mass index 42.1. She comes in 262 pounds. All surgical options for morbid obesity had been described using the [place] [facility] collaborative comorbidity resolution including complication risk score. A second-generation bariatric consent form was described in detail including the possibility of protein malnutrition, leaks, gastric stricture, venous thrombosis, gastroesophageal reflux disease, need for further surgery for which she demonstrated understanding. She is elevated risk for leaks and stricture including inadequate weight loss due to prior adjustable gastric band surgery. Benefits and risks of the procedure were described at length. Informed consent was obtained. DESCRIPTION: The patient was brought into the operating room theater. Preoperatively she had received Lovenox subcutaneously for DVT prophylaxis. Additionally she had Peridex oral solution as an oral decontaminant. After general induction, the abdomen was prepped and draped in standard sterile fashion. An Ioban draping was placed along the abdomen. A robotic da Willem Xi system was prepped and primed. Previous robotic incisions were used where proposed port sites were marked with indelible marker along the anterior axillary line bilaterally, mid axillary line bilaterally with each ports were marked 10 to 15 cm from each other. The robotic stapler port was marked for the right midclavicular line. A 5 mm 0 degrees laparoscopic trocar entry was performed along the left upper quadrant. The abdomen was insufflated to 15 mmHg pressure was tolerated well. Diagnostic laparoscopy demonstrated no injury to bowel, viscera, or mesentery. No evidence of large hiatus hernia was identified. The liver edge was sharp consistent with 2 week low-carb high-protein diet. Moderate scarring along the hiatus including posterior gastric stomach was identified from previous adjustable gastric band. The mesentery was thickened along the greater curvature of the stomach due to her prior adjustable gastric band as well. A 8 mm port was placed along the left upper abdominal wall after exchanging the 5 mm port. A separate 8 mm port was placed along the left lateral abdominal wall. Please note that the ports were placed at least 20 cm away from the target anatomy. Care was taken to check each robotic arms were safely away from collision with the bed or the patient. At the epigastrium, a medium sized Quiana liver retractor was placed under direct visualization with the Iron Tentering Machine Off Bearer placed under the right shoulder of the patient. Next, 12-mm robot stapler port was placed along the right upper quadrant. The camera 8-mm port was maintained along the epigastrium. The patient was repositioned in reverse Trendelenburg position at 21-degrees after lowering the bed. The robot was docked along the left side of the patient. Using a grasper for arm 4, a vessel sealer for arm 3, including grasper for arm 1, the robotic system was docked and primed as described. Instruments were interchanged by the accounting assistant for stapler loads. The camera was placed at 30- degrees down. I had sat at the console. The pylorus was identified and 6 cm proximally along the greater curvature of the stomach, the short gastrics were mobilized upwards to the angle of His using a vessel sealer. Hemostasis was excellent during this portion of the procedure. Next, the upper pole of the stomach was adherent to the left reese, which was gently dissected free using atraumatic grasper. Extra attention was brought to the upper pole of the stomach to completely free the attachments along the posterior superior gastric stomach due to a prior gastric band. Lysis of adhesions over 30 minutes was performed. I went to the head of the bed and placed 40-Pu[place]ican blunt bougie into the stomach. The bougie was readjusted by the nurse nurse practitioner home assessments. Robotic stapler black load 60 mm 1 followed by green 60 mm x 3 loads, blue 60 mm 3 loads were used to create the sleeve. Initial firing was across the antrum of the stomach towards the angle of His. The staple line was linear without corkscrewing. The space from the angularis incisura of the sleeve was approximately 4 cm. I then went to the head of the bed to perform the intraoperative esophagogastroduodenoscopy leak test. The bougie was withdrawn. The upper pole of the stomach was bathed using normal saline solution. The scope was withdrawn with careful inspection along the staple line for which no leaks were found along the entire length. Additionally,the sleeve was completely hemostatic without any encroachment along the angularis incisura. Its topology was a soft "J". No stricture was encountered upon placement of the scope. The GI tract was desufflated. The patient tolerated this portion of the procedure well. The scope was completely withdrawn. The robot was undocked. I then rescrubbed into case, whereby the irrigation fluid was aspirated from the abdominal cavity. Tisseel fibrin sealant was placed along the entire staple length. Once dried the Quiana liver retractor was removed. Attention was now brought to removal of the specimen. The distal end of the sleeve gastrectomy specimen was brought out through the 12 mm port at the left upper quadrant. The specimen was gently removed en total. No contamination had occurred during this process. All instruments and pneumoperitoneum including irrigation fluid was removed from the abdominal cavity. The 12 mm port site was closed using 0-Vicryl and Naif Olvera and irrigated with diluted hydrogen peroxide. The final incisions were closed using subcuticular interrupted suture of 4-0 Monocryl. Exofin was applied to the skin once the skin had been cleansed. OptiFoam dressing was placed along the stomach extraction site. The sleeve specimen was measured and checked also for leaks which none were found. At the end of the procedure, needle, sponge, and instrument count was verified correct by the cinetechnician. The patient was taken to the postanesthesia care unit in stable condition. She had tolerated the procedure well. Intraoperative films and findings were reviewed with the patient's family.
[2021-12-13] MEDS: DEXAMETHASONE SOD PHOSPHATE 4 MG/ML 1 ML VIAL IVP SCH ×2 (11:31→17:55)
[2021-12-13] MEDS: SODIUM CHLORIDE 0.9% 2,000 ML IV ONE ×2 (11:41→13:52)
[2021-12-13] MEDS: ALBUTEROL NEBULIZED 2.5 MG/3 ML INHALATION SCH ×3 (14:35→20:19)
[2021-12-13] MEDS: ONDANSETRON 4 MG/2 ML VIAL IVP SCH ×2 (14:35→17:55)
[2021-12-13] MEDS: KETOROLAC 30 MG/ML 1 ML VIAL IVP SCH ×2 (14:53→22:36)
[2021-12-13] MEDS: METOCLOPRAMIDE 5 MG/ML 2 ML VIAL IVP SCH ×2 (14:54→22:36)
[2021-12-13] MEDS: HYOSCYAMINE ORAL DROPS 1.875 MG/15 ML BOTTLE PO SCH ×2 (14:54→15:48)
[2021-12-13] MEDS: SIMETHICONE 40 MG/0.6 ML DROPS 2,000 MG/30 ML BOTTLE PO SCH ×2 (14:54→15:48)
[2021-12-13] MEDS: ACETAMINOPHEN IV (For NPO) 1,000 MG in EMPTY BAG 1 BAG IVPB SCH ×2 (14:55→22:35)
[2021-12-13] MEDS: 0.9% NACL WITH KCL 20 MEQ/L 1,000 ML IV SCH (14:55)
[2021-12-13] MEDS: METOPROLOL SUCCINATE (ER) 50 MG TAB.ER.24H PO SCH (22:35)
[2021-12-14] MEDS: DEXAMETHASONE SOD PHOSPHATE 4 MG/ML 1 ML VIAL IVP SCH ×4 (00:11→17:31)
[2021-12-14] MEDS: ONDANSETRON 4 MG/2 ML VIAL IVP SCH ×4 (00:11→17:31)
[2021-12-14] MEDS: SIMETHICONE 40 MG/0.6 ML DROPS 2,000 MG/30 ML BOTTLE PO SCH ×4 (00:13→17:31)
[2021-12-14] MEDS: HYOSCYAMINE ORAL DROPS 1.875 MG/15 ML BOTTLE PO SCH ×4 (00:13→17:31)
[2021-12-14] MEDS: ACETAMINOPHEN IV (For NPO) 1,000 MG in EMPTY BAG 1 BAG IVPB SCH ×2 (03:46→08:05)
[2021-12-14] MEDS: KETOROLAC 30 MG/ML 1 ML VIAL IVP SCH ×3 (03:47→17:31)
[2021-12-14] MEDS: METOCLOPRAMIDE 5 MG/ML 2 ML VIAL IVP SCH ×3 (03:47→17:30)
[2021-12-14] MEDS: LACTATED RINGERS 1,000 ML IV SCH (07:03)
[2021-12-14] MEDS ORDERED: 0.9% NACL WITH KCL 20 MEQ/L 1,000 ML IV SCH (08:00)
[2021-12-14] MEDS: 0.9% NACL WITH KCL 20 MEQ/L 1,000 ML IV SCH ×2 (08:06→08:10)
[2021-12-14] MEDS: METOPROLOL SUCCINATE (ER) 50 MG TAB.ER.24H PO SCH (08:07)
[2021-12-14] MEDS ORDERED: ENOXAPARIN 40 MG/0.4 ML SYRINGE SQ SCH (09:00)
[2021-12-14] MEDS ORDERED: PANTOPRAZOLE 40 MG/10 ML VIAL IV SCH (09:00)
[2021-12-14] MEDS: ALBUTEROL NEBULIZED 2.5 MG/3 ML INHALATION SCH ×3 (09:34→16:53)
[2021-12-14 09:39] LABS: Basophils # (A) 0.01 X 10*3/uL (0.00-0.10); Basophils % (A) 0.1 %; Eosinophils # (A) 0 X 10*3/uL (0.04-0.35); Eosinophils % (A) 0 %; HGB 12.2 g/dL (12.0-15.0); Lymphocytes # (A) 0.66 X 10*3/uL (0.90-5.00); Lymphocytes % (A) 7.5 %; MCH 29.2 pg (27.0-32.0); MCV 88.5 fL (80.0-97.0); Mean Platelet Volume 10.2 fL (9.5-12.2); Monocytes # (A) 0.21 X 10*3/uL (0.20-1.00); Monocytes % (A) 2.4 %; Neutrophils # (A) 7.92 X 10*3/uL (1.80-7.70); Neutrophils % (A) 89.5 %; Platelet Count 252 X 10*3/uL (140-440); RBC 4.18 X 10*6/uL (4.10-5.20); RDW 13.7 % (11.5-14.5); WBC 8.84 X 10*3/uL (4.50-10.00)
[2021-12-14 09:51] LABS: African American GFR (CKD) 96.4 (60.0-200.0); Anion Gap 15.1 mmol/L (10.00-18.00); Blood Urea Nitrogen 13.1 mg/dL (9.0-27.0); Calcium 8.7 mg/dL (8.7-10.3); Carbon Dioxide 17.2 mmol/L (20.0-27.5); Non-African American GFR(CKD) 83.2 (60.0-200.0); Phosphorus 2.9 mg/dL (2.4-5.1); Potassium 4.5 mmol/L (3.5-5.5)
[2021-12-14 10:09] LABS: Magnesium 1.8 mg/dL (1.5-2.4)
--- NOTE | 2021-12-14 13:48 | P.DS ---
<Shona Gabriel - Last Filed: 12/14/21 13:42> Providers Expected date of discharge: 12/14/21 Hospital Course: Discharge Diagnosis: Morbid obesity status post robotic-assisted da Willem Xi laparoscopic sleeve gastrectomy with 40-Comoran B, multi port and laparoscopic lysis of adhesions This is 61-year-old female with a history of lifelong morbid obesity who had a previous adjustable gastric band placed in 2005 with removal in 2020 who had presented for an elective sleeve gastrectomy. She is postop day #1 for robotic- assisted da Willem Xi laparoscopic sleeve gastrectomy with 40-Comor[place] Bovie, multi port and lysis of adhesions. Patient also had intraoperative EGD with negative leak test. Patient overall is doing well. States she has some incisional tenderness. She has been up and ambulating to the bathroom. She had just small sips of bariatric clear liquid this morning. She denies any nausea or vomiting. She's been afebrile. WBC 8.8 hemoglobin 12.2, sodium 139 potassium 4.5 BUN 13 creatinine 0.8 calcium 8.7 phosphorus 2.9 magnesium 1.8. She states she is belching, no flatus, no bowel movement. Plan - Discharge Summary Discharge Rx Participant: Yes New Discharge Prescriptions: New bisacodyL [Dulcolax] 5 mg PO DAILY PRN #10 tab PRN Reason: Constipation Simethicone 40 mg/0.6 ml Drops [Mylicon Drops] 40 mg PO PCHS PRN #30 ml PRN Reason: Gas Omeprazole [PriLOSEC] 40 mg PO DAILY #30 cap Ondansetron Odt [Zofran Odt] 4 mg PO Q8HR PRN #9 tab PRN Reason: Nausea Acetaminophen Tab [Tylenol Tab] 1,000 mg PO Q6HR PRN #30 tablet PRN Reason: Pain Continue Metoprolol Succinate (ER) [Toprol XL] 50 mg PO BID Dextroamphetamine/Amphetamine [Adderall] 20 mg PO BID Klonopin(Unknown Dose) 1 tab PO DIRECTED PRN PRN Reason: Anxiety lamoTRIgine [LaMICtal] 150 mg PO BID Discontinued Celecoxib [CeleBREX] 200 mg PO DAILY Discharge Medication List Dextroamphetamine/Amphetamine [Adderall] 20 mg PO BID 08/25/20 [History] Metoprolol Succinate (ER) [Toprol XL] 50 mg PO BID 08/25/20 [History] lamoTRIgine [LaMICtal] 150 mg PO BID 05/27/21 [History] Klonopin(Unknown Dose) 1 tab PO DIRECTED PRN 12/07/21 [History] Acetaminophen Tab [Tylenol Tab] 1,000 mg PO Q6HR PRN #30 tablet 12/14/21 [Rx] Omeprazole [PriLOSEC] 40 mg PO DAILY #30 cap 12/14/21 [Rx] Ondansetron Odt [Zofran Odt] 4 mg PO Q8HR PRN #9 tab 12/14/21 [Rx] Simethicone 40 mg/0.6 ml Drops [Mylicon Drops] 40 mg PO PCHS PRN #30 ml 12/14/21 [Rx] bisacodyL [Dulcolax] 5 mg PO DAILY PRN #10 tab 12/14/21 [Rx] Follow up [facility]ment(s[facility] [place] [facility] [place] 12[facility]17/21 9:00 am Patient Instructions/Handouts: Nutrition after Bariatric Surgery (DC), Laparoscopic Sleeve Gastrectomy (DC) Activity/Diet/Wound Care/Special Instructions: Liquid diet only for 2 weeks until Dec 27March Shower. No soaking in bath tubs 2 weeks until Dec 27 Continue to use incentive spirometry to prevent pneumonias. Please continue to ambulate at home to prevent blood clots in legs. Please notify your surgeon if you develop nausea and vomiting including new onset of abdominal pain. No lifting over 4 pounds in 4 weeks, Jan 13. Drink 64 oz of fluid daily. Start protein shakes on . Notify bariatric center for temp over 101.0, increased pain, drainage from incisions. No straws or carbonated beverages. Liquid diet only. Sugar content should be less than 6 g to avoid dumping syndrome. Take MOM for constipation. CRUSH, OPEN, OR CUT TABLETS LARGER THAN A SIZE OF A TIC TAC Discharge Disposition: HOME SELF-CARE <Sophia Ugarte - Last Filed: 12/14/21 13:56> Providers Date of admission: 12/13/21 06:44 Attending physician: Sophia Ugarte Primary care physician: Surjit Hughes
[2021-12-14 15:45] VITALS: BP 125/68; PULSE 46; RESP 17; TEMP 98
--- NOTE | 2021-12-14 17:31 | FL ---
SINGLE CONTRAST UPPER GI EXAMINATION: CLINICAL HISTORY: 61-year-old female postop bariatric surgery. Status post removal of lap band 2 wee ks ago. TECHNIQUE: Single contrast exam performed with 50 ml Isovue-370 contrast. Total fluoroscopy time: 2 minutes 59 seconds. Total images: 22. FINDINGS: The patient swallowed oral contrast without difficulty or delay. Esophageal peristalsis and motility are within normal limits. There is prompt passage of contrast from the esophagus into the stomach. Post surgical change of sleeve gastrectomy is demonstrated. Some redundancy and overlap is noted of t he stomach. There is adequate passage into the distal stomach. There is no evidence of contrast extra vasation to suggest leak. Somewhat widened C-loop of the proximal and mid duodenum. No post surgical free air is clearly identified. Some prominent air within the splenic flexure of the colon below the left hemidiaphragm. IMPRESSION: 1. No evidence of leak or significant obstruction status post sleeve gastrectomy. 2. Somewhat widened C-loop of the proximal and mid duodenum probably transient. If there are unusual or unexplained epigastric symptoms, contrast enhanced CT of the abdomen can be considered to further assess.
[2021-12-15] MEDS ORDERED: bisacodyL 5 MG TABLET.DR PO PRN (08:00)
== END 2021-12-14 19:29 | disposition home or self-care (01) | DRG 621 ==
LOC: 2ORMAIN 06:44 → 4SSUR 13:40
PROVIDERS: ADMIT Surgery Plastic and Reconstructive Surgery; ATTEND Surgery Plastic and Reconstructive Surgery
PROC: 0DJ08ZZ Inspection of Upper Intestinal Tract, Via Natural or Artificial Opening Endoscopic (ICD-10-PCS; 2021-12-13)
PROC: 8E0W4CZ Robotic Assisted Procedure of Trunk Region, Percutaneous Endoscopic Approach (ICD-10-PCS; 2021-12-13)
PROC: 0DB64Z3 Excision of Stomach, Percutaneous Endoscopic Approach, Vertical (ICD-10-PCS; principal; 2021-12-13 08:15)
DX: E66.01 Morbid (severe) obesity due to excess calories (principal); Z68.41 Body mass index [BMI] 40.0-44.9, adult; F31.9 Bipolar disorder, unspecified; F41.1 Generalized anxiety disorder; F90.9 Attention-deficit hyperactivity disorder, unspecified type; M17.12 Unilateral primary osteoarthritis, left knee; Z20.822 Contact with and (suspected) exposure to COVID-19; K21.9 Gastro-esophageal reflux disease without esophagitis; R13.10 Dysphagia, unspecified; I11.9 Hypertensive heart disease without heart failure; Z79.1 Long term (current) use of non-steroidal anti-inflammatories (NSAID); Z79.899 Other long term (current) drug therapy; Z85.820 Personal history of malignant melanoma of skin; Z96.652 Presence of left artificial knee joint
CPT/HCPCS: 74240; 80051; 80053; 82310; 82565; 83735; 84100; 84520; 85025; 86850; 86900; 86901; 87635; 88307; 94640

== ENCOUNTER → 2021-12-17 | Outpatient (CLI) | payer MEDICARE, OTHER ==
[~2021-12-17] MED LIST changes: -DEXAMETHASONE SOD PHOSPHATE 4 MG/ML 1 ML VIAL IV ONE; -LIDOCAINE 1% (10MG/ML) FOR IV START INTRADERMA PRN; -ONDANSETRON 4 MG/2 ML VIAL IVP ONE; -SCOPOLAMINE 1.5MG/72HR PATCH TRANSDERM ONE; +SODIUM CHLORIDE 0.9% 1,000 ML IV ONE
[2021-12-17 10:07] VITALS: BP 112/78; PULSE 73; RESP 16; TEMP 98.5
== END ==
LOC: PROCWHC3 10:00
PROVIDERS: ATTEND Surgery Plastic and Reconstructive Surgery
DX: E86.0 Dehydration (principal); Z91.040 Latex allergy status; Z91.048 Other nonmedicinal substance allergy status
CPT/HCPCS: 96360

== ENCOUNTER → 2021-12-17 | Outpatient (CLI) | payer MEDICARE, OTHER ==
[2021-12-15 11:44] VITALS: BMI 39.9
[2021-12-17 09:25] VITALS: BP 119/74; PULSE 77; TEMP 98.4
--- NOTE | 2021-12-17 09:56 | P.BASOAP ---
Subjective Progress Note Date: 12/17/21 DATE OF SERVICE: 12/17/2021 CHIEF COMPLAINT: Status post sleeve gastrectomy HISTORY OF PRESENT ILLNESS: Raul Lux is a 60-year-old female status post adjustable gastric band removal 09/13/2021. She is now status post sleeve gastrectomy, 12/13/21. She is POD 4. She reports dehydration and concentrated urine. She also reports decreased oral intake. She has no signs of infection. Her pain is well-controlled. At height of 5 feet 7.25 inches, her ideal body weight is 153 pounds. Highest weight of 273 pounds, BMI 42.6. She comes in 254 pounds from 273 pounds, 3 weeks ago. She has lost 19 pounds in 3 weeks. Her body mass index is 38.8. Lifetime weight loss of 19 pounds. Lifetime percent excess weight loss of 16%. She is 96 pounds overweight. PHYSICAL EXAM: VITAL SIGNS: Height 5 foot 7.25 inches, weight 254 pounds. BMI 38.8 Vital Signs Temp 98.4 F 12/17/21 09:22 Pulse 77 12/17/21 09:22 Resp BP 119/74 12/17/21 09:22 Pulse Ox GENERAL: Well-developed in no acute distress. HEENT: No scleral icterus. Extraocular movements grossly intact. Hears conversational speech. No nasal drainage. NECK: Supple without lymphadenopathy. CHEST: Nonlabored respirations with equal bilateral excursions. CARDIOVASCULAR: Regular rate and regular rhythm. Distal 2+ pulses. ABDOMEN: Incisions clean, dry and intact. No infection. MUSCULOSKELETAL: No clubbing, cyanosis. NEURO: No focal or lateralizing signs. Cranial nerves 2 through 12 grossly within normal limits. PSYCH: Appropriate affect. Alert and oriented to person, place and time. SKIN: Good skin turgor. Well perfused. ASSESSMENT: 1. Morbid obesity due to excess calories 2. Body mass index of 42.6 to 38.8 3. ADD with ADHD 4. Generalized anxiety disorder 5. Depressive disorder 6. Bipolar disorder 7. Osteoarthritis lower back 8. Osteoarthritis left knee 9. Gastroesophageal reflux disease 10. Hypertensive heart disease 11. Weight regain following bariatric procedure 12. Dysphagia. 13. Complications adjustable gastric band. 14. Hiatal hernia. 15. Status post band removal 16. Status post sleeve gastrectomy PLAN: 1. She reports dehydration and concentrated urine. Recommend IV fluid hydration. 2. Dietary guidelines were reviewed. 3. Follow up in 1 week described. Objective - Vital Signs Vital signs: Vital Signs Temp 98.4 F 12/17/21 09:22 Pulse 77 12/17/21 09:22 Resp BP 119/74 12/17/21 09:22 Pulse Ox Intake & Output 12/16/21 12/17/21 12/17/21 18:59 06:59 18:59 Weight 119 kg Assessment/Plan Plan: Date: 12/17/21 Initial Weight: 122.47 kg Initial BMI: 41.0 Current Weight: 119 kg Current BMI: 39.9 Type of Surgery: Total Volume in Band: 0 Previous Volume: Volume Removed: Volume Added: Band Size:
== END ==
LOC: BARWHC3 09:05
PROVIDERS: ATTEND Surgery Plastic and Reconstructive Surgery
DX: E66.01 Morbid (severe) obesity due to excess calories (principal); Z68.38 Body mass index [BMI] 38.0-38.9, adult; F90.9 Attention-deficit hyperactivity disorder, unspecified type; F41.1 Generalized anxiety disorder; F31.9 Bipolar disorder, unspecified; M47.9 Spondylosis, unspecified; M17.12 Unilateral primary osteoarthritis, left knee; K21.9 Gastro-esophageal reflux disease without esophagitis; I11.9 Hypertensive heart disease without heart failure; R13.10 Dysphagia, unspecified; K95.89 Other complications of other bariatric procedure; K44.9 Diaphragmatic hernia without obstruction or gangrene; Z98.84 Bariatric surgery status; Z91.040 Latex allergy status; Z91.09 Other allergy status, other than to drugs and biological substances
CPT/HCPCS: 99211

== ENCOUNTER → 2021-12-29 | Outpatient (CLI) | payer MEDICARE, OTHER ==
[2021-12-29 16:13] VITALS: BP 120/83; PULSE 73; RESP 16; TEMP 97.7; BMI 38.0
--- NOTE | 2021-12-29 16:32 | P.BASOAP ---
Subjective Progress Note Date: 12/29/21 DATE OF SERVICE: 12/29/2021 CHIEF COMPLAINT: Status post sleeve gastrectomy HISTORY OF PRESENT ILLNESS: Raul Lux is a 60-year-old female status post adjustable gastric band removal 09/13/2021. She is now status post sleeve gastrectomy, 12/13/21. She is 2 weeks out. She is not getting enough protein. She reports pulling along her left lower side from her incisions. At height of 5 feet 7.25 inches, her ideal body weight is 153 pounds. Highest weight of 273 pounds, BMI 42.6. She comes in 244 pounds from 254 pounds, 2 weeks ago. She has lost 10 pounds in 2 weeks. Her body mass index is 38.1. Lifetime weight loss of 29 pounds. Lifetime percent excess weight loss of 25 %. She is 86 pounds overweight. PHYSICAL EXAM: VITAL SIGNS: Height 5 foot 7.25 inches, weight 244 pounds. BMI 38.1 Vital Signs Temp 97.7 F 12/29/21 16:11 Pulse 73 12/29/21 16:11 Resp 16 12/29/21 16:11 BP 120/83 12/29/21 16:11 Pulse Ox GENERAL: Well-developed in no acute distress. HEENT: No scleral icterus. Extraocular movements grossly intact. Hears conversational speech. No nasal drainage. NECK: Supple without lymphadenopathy. CHEST: Nonlabored respirations with equal bilateral excursions. CARDIOVASCULAR: Regular rate and regular rhythm. Distal 2+ pulses. ABDOMEN: Incisions intact. MUSCULOSKELETAL: No clubbing, cyanosis. NEURO: No focal or lateralizing signs. Cranial nerves 2 through 12 grossly within normal limits. PSYCH: Appropriate affect. Alert and oriented to person, place and time. SKIN: Good skin turgor. Well perfused. ASSESSMENT: 1. Morbid obesity due to excess calories 2. Body mass index of 42.6 to 38.1 3. ADD with ADHD 4. Generalized anxiety disorder 5. Depressive disorder 6. Bipolar disorder 7. Osteoarthritis lower back 8. Osteoarthritis left knee 9. Gastroesophageal reflux disease 10. Hypertensive heart disease 11. Weight regain following bariatric procedure 12. Dysphagia. 13. Complications adjustable gastric band. 14. Hiatal hernia. 15. Status post band removal 16. Status post sleeve gastrectomy PLAN: 1. She is not getting enough protein. Increase protein shakes with goal protein 75 grams daily 2. For her incisions, recommend heating pad, massage. Objective - Vital Signs Vital signs: Vital Signs Temp 97.7 F 12/29/21 16:11 Pulse 73 12/29/21 16:11 Resp 16 12/29/21 16:11 BP 120/83 12/29/21 16:11 Pulse Ox Intake & Output 12/28/21 12/29/21 12/29/21 18:59 06:59 18:59 Weight 111.13 kg Assessment/Plan Plan: Date: 12/29/21 Initial Weight: 122.47 kg Initial BMI: 42.0 Current Weight: 111.13 kg Current BMI: 38.0 Type of Surgery: Total Volume in Band: 0 Previous Volume: Volume Removed: Volume Added: Band Size:
== END ==
LOC: BARWHC3 15:54
PROVIDERS: ATTEND Surgery Plastic and Reconstructive Surgery
DX: E66.01 Morbid (severe) obesity due to excess calories (principal); Z68.38 Body mass index [BMI] 38.0-38.9, adult; F90.9 Attention-deficit hyperactivity disorder, unspecified type; F41.1 Generalized anxiety disorder; F31.9 Bipolar disorder, unspecified; M47.9 Spondylosis, unspecified; K21.9 Gastro-esophageal reflux disease without esophagitis; I11.9 Hypertensive heart disease without heart failure; R13.10 Dysphagia, unspecified; K95.89 Other complications of other bariatric procedure; K44.9 Diaphragmatic hernia without obstruction or gangrene; Z91.040 Latex allergy status; Z91.048 Other nonmedicinal substance allergy status
CPT/HCPCS: 99211

== ENCOUNTER → 2022-01-12 | Outpatient (CLI) | payer MEDICARE, OTHER ==
[2022-01-12 15:08] VITALS: BP 117/83; PULSE 71; RESP 16; TEMP 98.3; BMI 37.1
--- NOTE | 2022-01-12 15:33 | P.BASOAP ---
Subjective Progress Note Date: 01/12/22 DATE OF SERVICE: 01/12/2022 CHIEF COMPLAINT: Status post sleeve gastrectomy HISTORY OF PRESENT ILLNESS: Raul Lux is a 60-year-old female status post adjustable gastric band removal 09/13/2021. She is now status post sleeve gastrectomy, 12/13/21. She is 1 month out. She is clinically doing well. Her amount of protein is not being counted. She reports 2 protein shakes a day with additional supplement protein powder. She is 1 month out. Total weight loss in 2 months of 35 pounds. At height of 5 feet 7.25 inches, her ideal body weight is 153 pounds. Highest weight of 273 pounds, BMI 42.6. She comes in 239 pounds from 244 pounds, 2 weeks ago. She has lost 6 pounds in 2 weeks. Her body mass index is 37.2. Lifetime weight loss of 35 pounds. Lifetime percent excess weight loss of 30 %. She is 80 pounds overweight. PHYSICAL EXAM: VITAL SIGNS: Height 5 foot 7.25 inches, weight 244 pounds. BMI 38.1 Vital Signs Temp 98.3 F 01/12/22 15:05 Pulse 71 01/12/22 15:05 Resp 16 01/12/22 15:05 BP 117/83 01/12/22 15:05 Pulse Ox GENERAL: Well-developed in no acute distress. HEENT: No scleral icterus. Extraocular movements grossly intact. Hears conversational speech. No nasal drainage. NECK: Supple without lymphadenopathy. CHEST: Nonlabored respirations with equal bilateral excursions. CARDIOVASCULAR: Regular rate and regular rhythm. Distal 2+ pulses. ABDOMEN: Soft, nontender, nondistended MUSCULOSKELETAL: No clubbing, cyanosis. NEURO: No focal or lateralizing signs. Cranial nerves 2 through 12 grossly within normal limits. PSYCH: Appropriate affect. Alert and oriented to person, place and time. SKIN: Good skin turgor. Well perfused. ASSESSMENT: 1. Morbid obesity due to excess calories 2. Body mass index of 42.6 to 37.2 3. ADD with ADHD 4. Generalized anxiety disorder 5. Depressive disorder 6. Bipolar disorder 7. Osteoarthritis lower back 8. Osteoarthritis left knee 9. Gastroesophageal reflux disease 10. Hypertensive heart disease 11. Weight regain following bariatric procedure 12. Dysphagia. 13. Complications adjustable gastric band. 14. Hiatal hernia. 15. Status post band removal 16. Status post sleeve gastrectomy PLAN: 1. Recommend bariatric labs. 2. She is 1 month out. Follow three-month cycle. 3. For any abdominal pain, recommend avoiding nonsteroidal anti-inflammatory drugs described. Objective - Vital Signs Vital signs: Vital Signs Temp 98.3 F 01/12/22 15:05 Pulse 71 01/12/22 15:05 Resp 16 01/12/22 15:05 BP 117/83 01/12/22 15:05 Pulse Ox Intake & Output 01/11/22 01/12/22 01/12/22 18:59 06:59 18:59 Weight 108.409 kg - Labs CBC & Chem 7: 01/12/22 15:55 01/12/22 15:55 Assessment/Plan Plan: Date: 01/12/22 Initial Weight: 122.47 kg Initial BMI: 42.0 Current Weight: 108.409 kg Current BMI: 37.1 Type of Surgery: Total Volume in Band: 0 Previous Volume: Volume Removed: Volume Added: Band Size:
[2022-01-12 23:19] LABS: HCT 37.8 % (37.2-46.3); HGB 12.4 g/dL (12.0-15.0); MCH 29.2 pg (27.0-32.0); MCHC 32.8 g/dL (32.0-37.0); MCV 89.2 fL (80.0-97.0); Mean Platelet Volume 11.2 fL (9.5-12.2); NRBC Per 100 WBC 0 /100 WBCS (0.0-0.0); Platelet Count 219 X 10*3/uL (140-440); RBC 4.24 X 10*6/uL (4.10-5.20); RDW 14.6 % (11.5-14.5); WBC 6.62 X 10*3/uL (4.50-10.00)
[2022-01-12 23:45] LABS: INR 1.09 (0.90-1.11); Partial Thromboplastin Time 29.9 sec (23.5-31.0); Prothrombin Time 11.9 sec (9.9-11.9)
[2022-01-13 00:50] LABS: Chol/HDL Ratio 5.15 Ratio; LDL Cholesterol,Calculated 151.3 mg/dL (0.0-131.0); Prealbumin 18.5 mg/dL (18.0-42.0)
[2022-01-13 01:52] LABS: % Iron Saturation 13.31 (12.00-45.00); ALT 22 U/L (8-44); AST 20 U/L (13-35); African American GFR (CKD) 92.2 (60.0-200.0); Albumin 4.6 g/dL (3.8-4.9); Albumin/Globulin Ratio 1.92 (1.60-3.17); Alkaline Phosphatase 81 U/L (41-126); BUN/Creat Ratio 14.75 Ratio (12.00-20.00); Blood Urea Nitrogen 11.8 mg/dL (9.0-27.0); Calcium 9.8 mg/dL (8.7-10.3); Chloride 104 mmol/L (96-109); Globulin 2.4 g/dL (1.6-3.3); Glucose 93 mg/dL (70-110); Iron 38 ug/dL (50-170); Non-African American GFR(CKD) 79.6 (60.0-200.0); Phosphorus 3.3 mg/dL (2.4-5.1); Potassium 4.5 mmol/L (3.5-5.5); Sodium 139 mmol/L (135-145); Total Iron Binding Capacity 288 ug/dL (228-460)
[2022-01-13 11:56] LABS: Zinc, Serum 74 ug/dL (60-130)
[2022-01-14 06:56] LABS: Vitamin A 35 ug/dL (38-106)
[2022-01-15 14:22] LABS: Selenium 102 mcg/L (63-160)
[2022-01-19 12:40] LABS: Vit B1(Thiamine) 61 ug/L (38-122)
== END ==
LOC: BARWHC3 14:34
PROVIDERS: ATTEND Surgery Plastic and Reconstructive Surgery
DX: E66.01 Morbid (severe) obesity due to excess calories (principal); E89.1 Postprocedural hypoinsulinemia; D50.8 Other iron deficiency anemias; E44.0 Moderate protein-calorie malnutrition; E45 Retarded development following protein-calorie malnutrition; E55.9 Vitamin D deficiency, unspecified; K74.1 Hepatic sclerosis; N19 Unspecified kidney failure; K50.90 Crohn's disease, unspecified, without complications; Z68.37 Body mass index [BMI] 37.0-37.9, adult; F90.9 Attention-deficit hyperactivity disorder, unspecified type; F41.1 Generalized anxiety disorder; F31.9 Bipolar disorder, unspecified; M47.9 Spondylosis, unspecified; I11.9 Hypertensive heart disease without heart failure; R13.10 Dysphagia, unspecified; K95.09 Other complications of gastric band procedure; K44.9 Diaphragmatic hernia without obstruction or gangrene; K21.9 Gastro-esophageal reflux disease without esophagitis; M17.12 Unilateral primary osteoarthritis, left knee; Z91.048 Other nonmedicinal substance allergy status; Z91.040 Latex allergy status; Z71.3 Dietary counseling and surveillance
CPT/HCPCS: 84255; 84134; 84425; 80061; 80053; 82607; 82728; 82525; 82746; 83540; 83550; 83735; 84100; 84443; 84590; 84630; 85027; 85610; 85730; 82306; 83970; 83036; 97803; G0463; 99211

== ENCOUNTER → 2022-08-31 | Outpatient (CLI) | payer MEDICARE, OTHER ==
[2022-08-31 15:32] VITALS: BP 128/74; PULSE 61; TEMP 97.8; BMI 25.4
--- NOTE | 2022-08-31 15:38 | P.BASOAP ---
Subjective Progress Note Date: 08/31/22 She is taking ALIVE multivitamin. Had iron deficiency. No moderate dysphagia. She looks fabulous. She still reports constipation. Lactulose prescribed. Objective - Vital Signs Vital signs: Vital Signs Temp 97.8 F 08/31/22 15:30 Pulse 61 08/31/22 15:30 Resp BP 128/74 08/31/22 15:30 Pulse Ox FiO2 Intake & Output 08/30/22 08/31/22 08/31/22 18:59 06:59 18:59 Weight 74.389 kg Assessment/Plan Plan: Date: 08/31/22 Initial Weight: 122.47 kg Initial BMI: 42.0 Current Weight: 74.389 kg Current BMI: 25.4 Type of Surgery: Total Volume in Band: 0 Previous Volume: Volume Removed: Volume Added: Band Size:
[2022-08-31 17:18] LABS: Partial Thromboplastin Time 24.1 sec (22.0-30.0); Prothrombin Time 10.6 sec (9.0-12.0)
[2022-08-31 22:25] LABS: HCT 36.5 % (37.2-46.3); HGB 11.8 g/dL (12.0-15.0); MCH 30.3 pg (27.0-32.0); MCHC 32.3 g/dL (32.0-37.0); MCV 93.6 fL (80.0-97.0); NRBC Per 100 WBC 0 /100 WBCS (0.0-0.0); Platelet Count 230 X 10*3/uL (140-440); RDW 13.2 % (11.5-14.5); WBC 5.69 X 10*3/uL (4.50-10.00)
[2022-09-01 01:57] LABS: ALT 26 U/L (8-44); AST 23 U/L (13-35); African American GFR (CKD) 110.7 (60.0-200.0); Albumin 4.4 g/dL (3.8-4.9); Albumin/Globulin Ratio 2.12 (1.60-3.17); Alkaline Phosphatase 74 U/L (41-126); BUN/Creat Ratio 16.92 Ratio (12.00-20.00); Blood Urea Nitrogen 11.1 mg/dL (9.0-27.0); Calcium 9.7 mg/dL (8.7-10.3); Carbon Dioxide 25.9 mmol/L (20.0-27.5); Chloride 102 mmol/L (96-109); Globulin 2.1 g/dL (1.6-3.3); Glucose 88 mg/dL (70-110); Iron 60 ug/dL (50-170); Magnesium 1.9 mg/dL (1.5-2.4); Non-African American GFR(CKD) 95.5 (60.0-200.0); Potassium 4.1 mmol/L (3.5-5.5); Sodium 139 mmol/L (135-145); Total Iron Binding Capacity 280 ug/dL (228-460); Total Protein 6.5 g/dL (6.2-8.2)
[2022-09-01 03:39] LABS: Chol/HDL Ratio 3.23 Ratio; LDL Cholesterol,Calculated 106.2 mg/dL (0.0-131.0); Prealbumin 20.7 mg/dL (18.0-42.0)
[2022-09-02 12:23] LABS: Zinc, Serum 78 ug/dL (60-130)
[2022-09-05 01:47] LABS: Selenium 110 mcg/L (63-160)
[2022-09-05 07:14] LABS: Vitamin A 52 ug/dL (38-106)
[2022-09-05 13:04] LABS: Vit B1(Thiamine) 80 ug/L (38-122)
== END | disposition home or self-care (01) ==
LOC: BARWHC3 14:29
PROVIDERS: ATTEND Surgery Plastic and Reconstructive Surgery
DX: E66.01 Morbid (severe) obesity due to excess calories (principal); Z68.25 Body mass index [BMI] 25.0-25.9, adult; D50.8 Other iron deficiency anemias; E89.1 Postprocedural hypoinsulinemia; E44.0 Moderate protein-calorie malnutrition; D50.9 Iron deficiency anemia, unspecified; K91.2 Postsurgical malabsorption, not elsewhere classified; E55.9 Vitamin D deficiency, unspecified; K74.1 Hepatic sclerosis; N19 Unspecified kidney failure; T56.894A Toxic effect of other metals, undetermined, initial encounter; K50.90 Crohn's disease, unspecified, without complications
CPT/HCPCS: 84255; 84134; 84425; 80061; 80053; 82607; 82728; 82525; 82746; 83540; 83550; 83735; 84100; 84443; 84590; 84630; 85027; 85610; 85730; 82306; 83970; 83036; G0463; 99211